=== PATIENT | female | born 1980 | race Caucasian/White ===

== ENCOUNTER 2017-06-25 07:43 | Emergency (ER) | payer MEDICARE, MEDICAID ==
[~2017-06-25] VITALS: Ht 149.9 cm; Wt 75.0 kg
[~2017-06-25 07:43] MED LIST: DULO-31 PO; EST1T PO; HYDR-3965 PO; IBUP-1051 PO; LIDO20SO PO; NAPR-232 PO; NAPR-56 PO; TRAM50TA2 PO; TRAZ-91 PO
[2017-06-25] MEDS ORDERED: ipratropium/albuterol 3ml nebule NEB ONE (08:15)
[2017-06-25] MEDS ORDERED: ketorolac trometh inj. 60 MG/2 ML VIAL IM ONE (08:15)
[2017-06-25] MEDS ORDERED: albuterol 2.5 MG/3 ML nebule NEB ONE (09:15)
[2017-06-25] MEDS ORDERED: BENZ-38 PO (09:17)
[2017-06-25] MEDS ORDERED: GUAI1TBM19 PO (09:17)
[2017-06-25] MEDS ORDERED: PRED50TA PO (09:17)
[2017-06-25] MEDS ORDERED: ALBU8.5H8 IH (09:17)
[2017-06-25 10:43] VITALS: BP 148/88
== END 2017-06-25 10:48 | disposition home or self-care (01) ==
LOC: ER 07:43
DX: J06.9 Acute upper respiratory infection, unspecified (principal); R05 Cough; J45.909 Unspecified asthma, uncomplicated; M81.0 Age-related osteoporosis without current pathological fracture; Z88.0 Allergy status to penicillin; Z88.2 Allergy status to sulfonamides; Z79.899 Other long term (current) drug therapy
CPT/HCPCS: 71046; 94640; 94760; 96372; 99284; J1885

== ENCOUNTER 2017-06-27 16:18 | Emergency (ER) | payer MEDICARE, MEDICAID ==
[~2017-06-27] VITALS: Ht 149.9 cm; Wt 68.2 kg
[~2017-06-27 16:18] MED LIST changes: +ALBU8.5H8 IH; +BENZ-38 PO; +GUAI1TBM19 PO; +PRED50TA PO
[2017-06-27 16:43] LABS: BASOPHILS # (AUTO) 0.1 X10'3 (0-0.2); BASOPHILS % (AUTO) 0.5 % (0-1); EOSINOPHILS # (AUTO) 0.2 X10'3 (0-0.9); EOSINOPHILS % (AUTO) 1.3 % (0-6); HEMATOCRIT 39.6 % (35.0-45.0); HEMOGLOBIN 13.4 g/dl (12.0-16.0); LYMPHOCYTES # (AUTO) 5.1 X10'3 (1.1-4.8); LYMPHOCYTES % (AUTO) 36.6 % (21-51); MEAN CORPUSCULAR HEMOGLOBIN 27.4 PG (27.0-31.0); MEAN CORPUSCULAR HGB CONC 33.7 % (33.0-36.5); MEAN CORPUSCULAR VOLUME 81.1 FL (78-98); MEAN PLATELET VOLUME 10.1 FL (7.4-10.4); MONOCYTES # (AUTO) 0.7 X10'3 (0-0.9); NEUTROPHILS # (AUTO) 7.8 X10'3 (1.8-7.7); NEUTROPHILS % (AUTO) 56.6 % (42-75); PLATELET COUNT 215 X10'3 (140-440); RED BLOOD COUNT 4.89 X10'6 (4.20-5.60); RED CELL DISTRIBUTION WIDTH 14.7 % (11.5-14.5); WHITE BLOOD COUNT 13.8 X10'3 (4.5-11.0)
[2017-06-27 16:55] LABS: INR 0.9 INR; PARTIAL THROMBOPLASTIN TIME 25 SECONDS (22-32); PROTHROMBIN TIME 9.8 SECONDS (9.0-12.0)
[2017-06-27 17:00] LABS: ALANINE AMINOTRANSFERASE 32 U/L (12-78); ALBUMIN 3.3 G/DL (3.4-5.0); ALBUMIN/GLOBULIN RATIO 0.9 (1.1-1.5); ALKALINE PHOSPHATASE 139 IU/L (46-116); ANION GAP 12 (8-16); ASPARTATE AMINO TRANSFERASE 15 U/L (10-37); BILIRUBIN,TOTAL 0.2 MG/DL (0.1-1.0); BLOOD UREA NITROGEN 15 MG/DL (7-18); BUN/CREATININE RATIO 16.3 (6.6-38.0); CALCIUM 8.6 MG/DL (8.5-10.1); CHLORIDE 104 MMOL/L (99-107); CREATININE 0.92 MG/DL (0.40-0.90); GLUCOSE 109 MG/DL (70-104); POTASSIUM 3.4 MMOL/L (3.5-5.1); SODIUM 141 MMOL/L (135-145); TOTAL CARBON DIOXIDE 25.4 MMOL/L (24-32); TOTAL PROTEIN 6.9 G/DL (6.4-8.2); eGFR 69 ML/MIN
[2017-06-27] MEDS ORDERED: normal saline 1000ML IV soln IVB ONE ×2 (19:00)
[2017-06-27] MEDS ORDERED: LORazepam 2 mg/ml vial IV ONE (19:35)
[2017-06-27 20:50] LABS: D-DIMER 0.35 MG/L FEU (0-0.50)
[2017-06-27 21:28] VITALS: BP 148/98
== END 2017-06-27 21:25 | disposition home or self-care (01) ==
LOC: ER 16:19
DX: R00.0 Tachycardia, unspecified (principal); J45.909 Unspecified asthma, uncomplicated; M81.0 Age-related osteoporosis without current pathological fracture; Z90.710 Acquired absence of both cervix and uterus; Z88.2 Allergy status to sulfonamides; Z88.0 Allergy status to penicillin
CPT/HCPCS: 36415; 71045; 80053; 84443; 84484; 85025; 85379; 85610; 85730; 93005; 96361; 96374; 99285; J2060; J7030

== ENCOUNTER 2017-07-14 09:07 | Emergency (ER) | payer MEDICARE, MEDICAID ==
[~2017-07-14] VITALS: Ht 149.9 cm; Wt 72.2 kg
[2017-07-14 09:18] VITALS: BP 153/81
[2017-07-14] MEDS ORDERED: ipratropium/albuterol 3ml nebule NEB ONE (09:45)
[2017-07-14] MEDS ORDERED: METH4TAB81 PO (09:53)
[2017-07-14] MEDS ORDERED: ERYT1OIN6 RIGHTEYE (09:53)
[2017-07-14] MEDS ORDERED: LIDO20SO16 PO (09:53)
[2017-07-14] MEDS ORDERED: CLAR500T PO (09:53)
[2017-07-14] MEDS ORDERED: ipratropium/albuterol 3ml nebule ONE (09:57)
== END 2017-07-14 10:44 | disposition home or self-care (01) ==
LOC: ER 09:07
DX: J98.01 Acute bronchospasm (principal); H10.9 Unspecified conjunctivitis; H66.91 Otitis media, unspecified, right ear; J45.909 Unspecified asthma, uncomplicated; M81.0 Age-related osteoporosis without current pathological fracture; Z90.710 Acquired absence of both cervix and uterus; Z88.0 Allergy status to penicillin; Z88.2 Allergy status to sulfonamides; Z79.899 Other long term (current) drug therapy
CPT/HCPCS: 94640; 94760; 99283

== ENCOUNTER 2017-11-01 09:56 | Emergency (ER) | payer MEDICARE, MEDICAID ==
[~2017-11-01] VITALS: Ht 147.3 cm; Wt 68.0 kg
[~2017-11-01 09:56] MED LIST changes: -BENZ-38 PO; -HYDR-3965 PO; +LIDO20SO16 PO; +METH4TAB81 PO
[2017-11-01] MEDS ORDERED: LIDOcaine 1% 30ml preserv. free vial IJ ONE (10:50)
[2017-11-01] MEDS ORDERED: TETanus/Pertussis (Acell)/Diphther VAC/PF (Tdap-Adult) 0.5ml syringe IM ONE (10:50)
[2017-11-01] MEDS ORDERED: DOXY100C2 PO (10:58)
[2017-11-01 11:20] VITALS: BP 113/69
== END 2017-11-01 11:24 | disposition home or self-care (01) ==
LOC: ER 09:56
DX: S61.210A Laceration without foreign body of right index finger without damage to nail, initial encounter (principal); J45.909 Unspecified asthma, uncomplicated; M81.0 Age-related osteoporosis without current pathological fracture; Z90.710 Acquired absence of both cervix and uterus; Z98.890 Other specified postprocedural states; Z88.0 Allergy status to penicillin; Z88.2 Allergy status to sulfonamides; Z79.899 Other long term (current) drug therapy; W26.8XXA Contact with other sharp object(s), not elsewhere classified, initial encounter; Y93.89 Activity, other specified; Y92.89 Other specified places as the place of occurrence of the external cause; Y99.8 Other external cause status
CPT/HCPCS: 90471; 90715; 99283

== ENCOUNTER 2018-09-09 15:52 | Emergency (ER) | payer MEDICARE, MEDICAID ==
[~2018-09-09] VITALS: Ht 149.9 cm; Wt 68.2 kg
[2018-09-09 15:53] VITALS: BP 136/87
[2018-09-09] MEDS ORDERED: NAPR-56 PO (16:11)
== END 2018-09-09 16:27 | disposition home or self-care (01) ==
LOC: ER 15:53
DX: G56.01 Carpal tunnel syndrome, right upper limb (principal); G89.29 Other chronic pain; J45.909 Unspecified asthma, uncomplicated; M81.0 Age-related osteoporosis without current pathological fracture; Z90.710 Acquired absence of both cervix and uterus; Z98.890 Other specified postprocedural states; Z88.0 Allergy status to penicillin; Z88.2 Allergy status to sulfonamides; Z79.899 Other long term (current) drug therapy
CPT/HCPCS: 29125; 99283

== ENCOUNTER 2018-11-08 17:30 | Emergency (ER) | payer MEDICARE, MEDICAID ==
[~2018-11-08] VITALS: Ht 149.9 cm; Wt 71.0 kg
[2018-11-08 18:03] VITALS: BP 122/77
== END 2018-11-08 20:11 | disposition home or self-care (01) ==
LOC: ER 17:30
DX: M25.562 Pain in left knee (principal); J45.909 Unspecified asthma, uncomplicated; M81.0 Age-related osteoporosis without current pathological fracture; F41.9 Anxiety disorder, unspecified; F32.9 Major depressive disorder, single episode, unspecified; Z88.0 Allergy status to penicillin; Z88.2 Allergy status to sulfonamides; Z79.899 Other long term (current) drug therapy; Z90.710 Acquired absence of both cervix and uterus; Z98.890 Other specified postprocedural states
CPT/HCPCS: 73564; 99283

== ENCOUNTER 2018-12-21 16:59 | Emergency (ER) | payer MEDICARE, MEDICAID ==
[~2018-12-21] VITALS: Ht 149.9 cm; Wt 68.0 kg
[2018-12-21 17:04] VITALS: BP 137/80
[2018-12-21] MEDS ORDERED: CLIN300C54 PO (17:43)
[2018-12-21] MEDS ORDERED: TRAM50TA2 PO (17:43)
[2018-12-21] MEDS ORDERED: CHLO473M3 PO (17:43)
== END 2018-12-21 17:47 | disposition home or self-care (01) ==
LOC: ER 17:00
DX: K04.7 Periapical abscess without sinus (principal); M81.0 Age-related osteoporosis without current pathological fracture; J45.909 Unspecified asthma, uncomplicated; F32.9 Major depressive disorder, single episode, unspecified; F41.9 Anxiety disorder, unspecified; Z88.0 Allergy status to penicillin; Z88.2 Allergy status to sulfonamides; Z79.899 Other long term (current) drug therapy; Z79.1 Long term (current) use of non-steroidal anti-inflammatories (NSAID); Z98.890 Other specified postprocedural states; Z90.710 Acquired absence of both cervix and uterus; Z90.721 Acquired absence of ovaries, unilateral
CPT/HCPCS: 99283

== ENCOUNTER 2018-12-31 09:49 | Emergency (ER) | payer MEDICARE, MEDICAID ==
[~2018-12-31] VITALS: Ht 149.9 cm; Wt 75.0 kg
[~2018-12-31 09:49] MED LIST changes: +CHLO473M3 PO; +CLIN300C54 PO
[2018-12-31] MEDS ORDERED: methylPREDNISolone sod succ 125mg/2ml vial IV ONE (09:55)
[2018-12-31] MEDS ORDERED: magnesium 2GM in 50ml NS 50 ML IV ONE (09:55)
[2018-12-31] MEDS ORDERED: albuterol 2.5 MG/3 ML nebule CONTNEB PRN (09:55)
[2018-12-31] MEDS ORDERED: normal saline 1000ML IV soln IVB ONE (09:55)
[2018-12-31 10:23] LABS: BASOPHILS # (AUTO) 0.1 X10'3 (0-0.2); BASOPHILS % (AUTO) 0.9 % (0-1); EOSINOPHILS % (AUTO) 10.7 % (0-6); HEMOGLOBIN 13.8 g/dl (12.0-16.0); LYMPHOCYTES # (AUTO) 3.2 X10'3 (1.1-4.8); LYMPHOCYTES % (AUTO) 33.2 % (21-51); MEAN CORPUSCULAR HEMOGLOBIN 27.9 PG (27.0-31.0); MEAN CORPUSCULAR HGB CONC 33.6 g/dL (33.0-36.5); MEAN PLATELET VOLUME 9.6 FL (7.4-10.4); MONOCYTES # (AUTO) 0.6 X10'3 (0-0.9); NEUTROPHILS # (AUTO) 4.7 X10'3 (1.8-7.7); NEUTROPHILS % (AUTO) 49.2 % (42-75); PLATELET COUNT 202 X10'3 (140-440); RED BLOOD COUNT 4.94 X10'6 (4.20-5.60); RED CELL DISTRIBUTION WIDTH 14.1 % (11.5-14.5); WHITE BLOOD COUNT 9.5 X10'3 (4.5-11.0)
[2018-12-31 10:36] LABS: ALANINE AMINOTRANSFERASE 28 U/L (12-78); ALBUMIN 3.1 G/DL (3.4-5.0); ALBUMIN/GLOBULIN RATIO 0.8 (1.1-1.5); ALKALINE PHOSPHATASE 134 IU/L (46-116); ANION GAP 8 (8-16); ASPARTATE AMINO TRANSFERASE 13 U/L (10-37); BILIRUBIN,TOTAL 0.1 MG/DL (0.1-1.0); BLOOD UREA NITROGEN 14 MG/DL (7-18); BUN/CREATININE RATIO 18.4 (6.6-38.0); CALCIUM 8.6 MG/DL (8.5-10.1); CHLORIDE 107 MMOL/L (99-107); CREATININE 0.76 MG/DL (0.40-0.90); GLUCOSE 113 MG/DL (70-104); POTASSIUM 3.6 MMOL/L (3.5-5.1); SODIUM 141 MMOL/L (135-145); TOTAL CARBON DIOXIDE 25.6 MMOL/L (24-32); TOTAL PROTEIN 6.8 G/DL (6.4-8.2); eGFR 86 ML/MIN
[2018-12-31] MEDS ORDERED: PRED20TA PO (10:45)
[2018-12-31] MEDS ORDERED: AZIT250T2 PO (10:45)
[2018-12-31] MEDS ORDERED: ALBU6.7H9 INH (11:43)
[2018-12-31 11:54] VITALS: BP 119/68
== END 2018-12-31 11:55 | disposition home or self-care (01) ==
LOC: ER 09:50
DX: J45.901 Unspecified asthma with (acute) exacerbation (principal); J20.9 Acute bronchitis, unspecified; M81.0 Age-related osteoporosis without current pathological fracture; F41.9 Anxiety disorder, unspecified; F32.9 Major depressive disorder, single episode, unspecified; Z90.710 Acquired absence of both cervix and uterus; Z98.890 Other specified postprocedural states; Z88.0 Allergy status to penicillin; Z88.2 Allergy status to sulfonamides; Z79.2 Long term (current) use of antibiotics; Z79.899 Other long term (current) drug therapy
CPT/HCPCS: 36415; 71045; 80053; 85025; 94644; 96365; 96375; 99285; J2930; J3475; J7030; 99284

== ENCOUNTER 2019-01-28 12:40 | Emergency (ER) | payer MEDICARE, MEDICAID ==
[~2019-01-28] VITALS: Ht 149.9 cm; Wt 65.9 kg
[~2019-01-28 12:40] MED LIST changes: +ALBU6.7H9 INH
[2019-01-28 14:41] LABS: BASOPHILS # (AUTO) 0.1 X10'3 (0-0.2); BASOPHILS % (AUTO) 0.7 % (0-1); EOSINOPHILS # (AUTO) 1.1 X10'3 (0-0.9); EOSINOPHILS % (AUTO) 11.4 % (0-6); HEMATOCRIT 40.7 % (35.0-45.0); HEMOGLOBIN 13.7 g/dl (12.0-16.0); LYMPHOCYTES # (AUTO) 3.2 X10'3 (1.1-4.8); LYMPHOCYTES % (AUTO) 31.9 % (21-51); MEAN CORPUSCULAR HEMOGLOBIN 27.9 PG (27.0-31.0); MEAN CORPUSCULAR HGB CONC 33.6 g/dL (33.0-36.5); MEAN CORPUSCULAR VOLUME 83.2 FL (78-98); MEAN PLATELET VOLUME 9.5 FL (7.4-10.4); MONOCYTES # (AUTO) 0.5 X10'3 (0-0.9); MONOCYTES % (AUTO) 5.3 % (2-12); NEUTROPHILS # (AUTO) 5.1 X10'3 (1.8-7.7); NEUTROPHILS % (AUTO) 50.7 % (42-75); PLATELET COUNT 252 X10'3 (140-440); RED BLOOD COUNT 4.89 X10'6 (4.20-5.60); RED CELL DISTRIBUTION WIDTH 14.1 % (11.5-14.5)
[2019-01-28 14:51] LABS: ALANINE AMINOTRANSFERASE 26 U/L (12-78); ALBUMIN 3.1 G/DL (3.4-5.0); ALBUMIN/GLOBULIN RATIO 0.8 (1.1-1.5); ALKALINE PHOSPHATASE 122 IU/L (46-116); ANION GAP 9 (8-16); ASPARTATE AMINO TRANSFERASE 14 U/L (10-37); BILIRUBIN,TOTAL 0.2 MG/DL (0.1-1.0); BLOOD UREA NITROGEN 8 MG/DL (7-18); BUN/CREATININE RATIO 10.8 (6.6-38.0); CALCIUM 8.9 MG/DL (8.5-10.1); CHLORIDE 105 MMOL/L (99-107); CREATININE 0.74 MG/DL (0.40-0.90); GLUCOSE 90 MG/DL (70-104); POTASSIUM 3.6 MMOL/L (3.5-5.1); SODIUM 140 MMOL/L (135-145); TOTAL PROTEIN 6.9 G/DL (6.4-8.2); eGFR 88 ML/MIN
[2019-01-28] MEDS ORDERED: predniSONE 20 mg tablet PO ONE (15:05)
[2019-01-28] MEDS ORDERED: ipratropium/albuterol 3ml nebule NEB ONE (15:05)
[2019-01-28] MEDS ORDERED: PRED10TA23 PO (15:44)
[2019-01-28 15:56] VITALS: BP 117/75
== END 2019-01-28 16:01 | disposition home or self-care (01) ==
LOC: ER 12:41
DX: J45.909 Unspecified asthma, uncomplicated (principal); J02.9 Acute pharyngitis, unspecified; M81.0 Age-related osteoporosis without current pathological fracture; F41.9 Anxiety disorder, unspecified; F32.9 Major depressive disorder, single episode, unspecified; Z88.0 Allergy status to penicillin; Z88.2 Allergy status to sulfonamides; Z79.899 Other long term (current) drug therapy; Z98.890 Other specified postprocedural states; Z90.710 Acquired absence of both cervix and uterus
CPT/HCPCS: 36415; 71046; 80053; 85025; 94640; 94760; 99284; J7512

== ENCOUNTER 2019-02-27 06:43 | Emergency (ER) | payer MEDICARE, MEDICAID ==
[~2019-02-27] VITALS: Ht 149.9 cm; Wt 75.0 kg
[~2019-02-27 06:43] MED LIST changes: +PRED10TA23 PO
[2019-02-27] MEDS ORDERED: ipratropium/albuterol 3ml nebule NEB ONE (07:00)
[2019-02-27] MEDS ORDERED: predniSONE 20 mg tablet PO ONE (07:00)
--- NOTE | 2019-02-27 07:01 | NUR ---
patient received in room 8.patietn connected to the monitor.call light within reach.
--- NOTE | 2019-02-27 07:12 | NUR ---
awaiting rt for breathing treatment.
[2019-02-27] MEDS ORDERED: PRED20TA PO (07:36)
[2019-02-27 07:46] VITALS: BP 126/82
--- NOTE | 2019-02-27 10:06 | NUR ---
I have reviewed and agree with all medications administered and interventions performed by CANCELING AND CUTTING CONTROL CLERK Student Dimas Clemente.
== END 2019-02-27 07:47 | disposition home or self-care (01) ==
LOC: ER 06:43
DX: J45.909 Unspecified asthma, uncomplicated (principal); M81.0 Age-related osteoporosis without current pathological fracture; Z98.890 Other specified postprocedural states; Z90.710 Acquired absence of both cervix and uterus; Z79.899 Other long term (current) drug therapy; Z88.0 Allergy status to penicillin; Z88.2 Allergy status to sulfonamides
CPT/HCPCS: 71045; 94640; 94760; 99283; J7512

== ENCOUNTER 2019-03-19 14:22 | Emergency (ER) | payer MEDICARE, MEDICAID ==
[~2019-03-19] VITALS: Ht 149.9 cm; Wt 72.0 kg
[~2019-03-19 14:22] MED LIST changes: -PRED10TA23 PO; +PRED20TA PO
[2019-03-19] MEDS ORDERED: ipratropium/albuterol 3ml nebule NEB ONE (15:25)
--- NOTE | 2019-03-19 15:46 | NUR ---
SVN TREATMENT IN PROGRESS
[2019-03-19] MEDS ORDERED: predniSONE 20 mg tablet PO ONE (15:50)
[2019-03-19] MEDS ORDERED: AZIT250T83 PO (15:54)
[2019-03-19] MEDS ORDERED: PRED20TA PO (15:54)
[2019-03-19 16:25] VITALS: BP 135/64
== END 2019-03-19 16:20 | disposition home or self-care (01) ==
LOC: ER 14:23
DX: J45.909 Unspecified asthma, uncomplicated (principal); J20.9 Acute bronchitis, unspecified; F41.9 Anxiety disorder, unspecified; F32.9 Major depressive disorder, single episode, unspecified; Z90.710 Acquired absence of both cervix and uterus; Z98.890 Other specified postprocedural states; Z90.721 Acquired absence of ovaries, unilateral; Z88.0 Allergy status to penicillin; Z88.2 Allergy status to sulfonamides; Z79.899 Other long term (current) drug therapy
CPT/HCPCS: 93005; 94640; 99283; J7512; 94760

== ENCOUNTER 2019-03-26 18:19 | Emergency (ER) | payer MEDICARE, MEDICAID ==
[~2019-03-26] VITALS: Ht 149.9 cm; Wt 68.0 kg
[2019-03-26 18:30] VITALS: BP 125/83
[2019-03-26] MEDS ORDERED: AZIT250T PO (20:33)
[2019-03-26] MEDS ORDERED: acetaminophen 325mg tablet PO ONE (20:35)
[2019-03-26] MEDS ORDERED: azithromycin 250mg tablet PO ONE (20:35)
== END 2019-03-26 20:52 | disposition home or self-care (01) ==
LOC: ER 18:21
DX: J20.9 Acute bronchitis, unspecified (principal); J45.909 Unspecified asthma, uncomplicated; F41.9 Anxiety disorder, unspecified; F32.9 Major depressive disorder, single episode, unspecified; Z90.710 Acquired absence of both cervix and uterus; Z98.890 Other specified postprocedural states; Z90.721 Acquired absence of ovaries, unilateral; Z88.0 Allergy status to penicillin; Z88.2 Allergy status to sulfonamides; Z79.899 Other long term (current) drug therapy
CPT/HCPCS: 99283

== ENCOUNTER 2019-04-26 19:02 | Emergency (ER) | payer MEDICARE, MEDICAID ==
[~2019-04-26] VITALS: Ht 149.9 cm; Wt 72.7 kg
[~2019-04-26 19:02] MED LIST changes: +AZIT250T PO; -PRED20TA PO
[2019-04-26] MEDS ORDERED: TRAM50TA2 PO (21:14)
[2019-04-26] MEDS ORDERED: IBUP-1984 PO (21:14)
[2019-04-26 21:23] VITALS: BP 134/79
== END 2019-04-26 21:25 | disposition home or self-care (01) ==
LOC: ER 19:03
DX: S20.212A Contusion of left front wall of thorax, initial encounter (principal); J45.909 Unspecified asthma, uncomplicated; F41.9 Anxiety disorder, unspecified; F32.9 Major depressive disorder, single episode, unspecified; Z90.710 Acquired absence of both cervix and uterus; Z98.890 Other specified postprocedural states; Z88.2 Allergy status to sulfonamides; Z88.0 Allergy status to penicillin; Z79.2 Long term (current) use of antibiotics; Z79.899 Other long term (current) drug therapy; W18.39XA Other fall on same level, initial encounter; Y93.89 Activity, other specified; Y92.092 Bedroom in other non-institutional residence as the place of occurrence of the external cause; Y99.2 Volunteer activity
CPT/HCPCS: 71045; 99283

== ENCOUNTER 2019-06-18 09:59 | Inpatient (IN) | payer MEDICARE, MEDICAID ==
[~2019-06-18] VITALS: Ht 149.9 cm; Wt 71.0 kg
[2019-06-18 11:42] LABS: BASOPHILS # (AUTO) 0.1 X10'3 (0-0.2); BASOPHILS % (AUTO) 0.9 % (0-1); EOSINOPHILS # (AUTO) 0.5 X10'3 (0-0.9); EOSINOPHILS % (AUTO) 5.9 % (0-6); HEMATOCRIT 43.2 % (35.0-45.0); HEMOGLOBIN 14.3 g/dl (12.0-16.0); LYMPHOCYTES # (AUTO) 2.5 X10'3 (1.1-4.8); LYMPHOCYTES % (AUTO) 31.2 % (21-51); MEAN CORPUSCULAR HEMOGLOBIN 26.9 PG (27.0-31.0); MEAN CORPUSCULAR HGB CONC 33.2 g/dL (33.0-36.5); MEAN CORPUSCULAR VOLUME 81.2 FL (78-98); MEAN PLATELET VOLUME 9.6 FL (7.4-10.4); MONOCYTES # (AUTO) 0.5 X10'3 (0-0.9); MONOCYTES % (AUTO) 6.7 % (2-12); NEUTROPHILS # (AUTO) 4.4 X10'3 (1.8-7.7); NEUTROPHILS % (AUTO) 55.3 % (42-75); PLATELET COUNT 240 X10'3 (140-440); RED BLOOD COUNT 5.32 X10'6 (4.20-5.60); RED CELL DISTRIBUTION WIDTH 14.2 % (11.5-14.5); WHITE BLOOD COUNT 7.9 X10'3 (4.5-11.0)
[2019-06-18 11:53] LABS: ALANINE AMINOTRANSFERASE 22 U/L (12-78); ALBUMIN 3.5 G/DL (3.4-5.0); ALBUMIN/GLOBULIN RATIO 0.9 (1.1-1.5); ALKALINE PHOSPHATASE 129 IU/L (46-116); ANION GAP 8 (8-16); ASPARTATE AMINO TRANSFERASE 13 U/L (10-37); BILIRUBIN,TOTAL 0.3 MG/DL (0.1-1.0); BLOOD UREA NITROGEN 7 MG/DL (7-18); BUN/CREATININE RATIO 8.5 (6.6-38.0); CALCIUM 8.9 MG/DL (8.5-10.1); CHLORIDE 105 MMOL/L (99-107); CREATININE 0.82 MG/DL (0.40-0.90); GLUCOSE 100 MG/DL (70-104); POTASSIUM 3.7 MMOL/L (3.5-5.1); SODIUM 142 MMOL/L (135-145); TOTAL CARBON DIOXIDE 29.4 MMOL/L (24-32); TOTAL PROTEIN 7.2 G/DL (6.4-8.2); eGFR 78 ML/MIN
[2019-06-18 11:54] LABS: TROPONIN I < 0.04 NG/ML (0.0-0.05)
[2019-06-18] MEDS: diatr meglu/diatrizoate 30ml oral sol.-(3 dose) bottle PO SCH (12:45)
[2019-06-18] MEDS ORDERED: diatr meglu/diatrizoate 30ml oral sol.-(3 dose) bottle ONE (12:50)
--- NOTE | 2019-06-18 13:32 | NUR ---
GASTROGRAFIN GIVEN OUT AT CT DURING CT SCAN.
[2019-06-18] MEDS ORDERED: morphine 4 MG/ML inj SYRINge IV ONE (15:05)
[2019-06-18] MEDS ORDERED: normal saline 1000ML IV soln IVB ONE (15:05)
[2019-06-18] MEDS ORDERED: pantoprazole 40 MG vial IV ONE (15:05)
[2019-06-18] MEDS ORDERED: TEMA15CA PO (15:13)
[2019-06-18] MEDS ORDERED: OMEP20CA15 PO (15:13)
[2019-06-18] MEDS ORDERED: FLUO-212 PO (15:13)
[2019-06-18] MEDS ORDERED: LORA-269 PO (15:13)
[2019-06-18] MEDS ORDERED: albuterol 2.5 MG/3 ML nebule NEB PRN (15:50)
[2019-06-18] MEDS ORDERED: morphine ORAL 5MG/0.25 ML (Conc. morphine) oral syringe PO PRN (15:55)
[2019-06-18] MEDS ORDERED: acetaminophen 650mg rectal suppository RC PRN (15:55)
[2019-06-18] MEDS ORDERED: mag hydrox/Alum hydrox/simeth 30ml oral suspension PO PRN (15:55)
[2019-06-18] MEDS ORDERED: acetaminophen 325mg tablet PO PRN (15:55)
[2019-06-18] MEDS ORDERED: ondansetron/PF 4mg/2ml inj IV PRN (15:55)
[2019-06-18] MEDS ORDERED: morphine 2 MG/ML inj. syringe IV PRN (15:55)
[2019-06-18] MEDS ORDERED: magnesium hydroxide 30ml (MOM) UD suspension PO PRN (15:55)
[2019-06-18] MEDS ORDERED: TRAM50TA2 PO (16:17)
[2019-06-18] MEDS ORDERED: CYCL-1 PO (16:17)
[2019-06-18] MEDS ORDERED: cyclobenzaprine 10mg tablet PO PRN (16:40)
[2019-06-18] MEDS: dextrose 5%-1/2 normal saline 1,000 ML IV SCH ×2 (16:53→16:56)
[2019-06-18] MEDS: sucralfate 1gm/10ml UD suspension PO SCH ×2 (16:55→20:16)
--- NOTE | 2019-06-18 18:41 | NUR ---
I was giving report to the floor and was informed by her that they changed assignments and the patient no longer has the room.
--- NOTE | 2019-06-18 19:30 | NUR ---
Patient in room [facility]TH[facility] 4015. I have received report from ORQUIDEA Villarreal and had the opportunity to ask questions and assume patient care.
[2019-06-18 20:00] VITALS: BP_SYST 110; BP_SYST 129; BP_SYST 99; BP_DIAS 63; BP_DIAS 68; BP_DIAS 88
[2019-06-18] MEDS: morphine 2 MG/ML inj. syringe IV PRN (20:13)
[2019-06-18] MEDS ORDERED: ibuprofen tablet 400 MG TABLET PO PRN (21:00)
[2019-06-18 22:00] VITALS: BP 110/68
[2019-06-18] MEDS: temazepam 15mg capsule PO PRN (22:04)
[2019-06-19] MEDS: morphine 2 MG/ML inj. syringe IV PRN ×3 (01:50→19:30)
[2019-06-19] MEDS: albuterol 2.5 MG/3 ML nebule NEB SCH ×4 (01:53→20:27)
--- NOTE | 2019-06-19 06:30 | NUR ---
Problems reprioritized. Patient report given, questions answered & plan of care reviewed with ORQUIDEA Baron.
--- NOTE | 2019-06-19 06:30 | NUR ---
Patient in room ORTH[facility] 4015. I have received report from Cookie HEARD and had the opportunity to ask questions and assume patient care.
[2019-06-19] MEDS: dextrose 5%-1/2 normal saline 1,000 ML IV SCH ×2 (06:41→16:30)
[2019-06-19] MEDS: sucralfate 1gm/10ml UD suspension PO SCH ×5 (06:53→21:19)
[2019-06-19 06:56] VITALS: BP 108/58
[2019-06-19 07:25] LABS: BASOPHILS # (AUTO) 0.1 X10'3 (0-0.2); BASOPHILS % (AUTO) 0.8 % (0-1); EOSINOPHILS # (AUTO) 0.5 X10'3 (0-0.9); EOSINOPHILS % (AUTO) 6.3 % (0-6); HEMATOCRIT 41.8 % (35.0-45.0); HEMOGLOBIN 13.8 g/dl (12.0-16.0); LYMPHOCYTES % (AUTO) 40.9 % (21-51); MEAN CORPUSCULAR HEMOGLOBIN 26.9 PG (27.0-31.0); MEAN CORPUSCULAR VOLUME 81.4 FL (78-98); MONOCYTES # (AUTO) 0.4 X10'3 (0-0.9); NEUTROPHILS # (AUTO) 3.4 X10'3 (1.8-7.7); PLATELET COUNT 233 X10'3 (140-440); RED BLOOD COUNT 5.13 X10'6 (4.20-5.60); RED CELL DISTRIBUTION WIDTH 14.5 % (11.5-14.5); WHITE BLOOD COUNT 7.4 X10'3 (4.5-11.0)
[2019-06-19 07:34] LABS: ALBUMIN 3.2 G/DL (3.4-5.0); ANION GAP 7 (8-16); BLOOD UREA NITROGEN 5 MG/DL (7-18); CALCIUM 8.8 MG/DL (8.5-10.1); CHLORIDE 108 MMOL/L (99-107); CREATININE 0.84 MG/DL (0.40-0.90); GLUCOSE 86 MG/DL (70-104); POTASSIUM 3.7 MMOL/L (3.5-5.1); SODIUM 143 MMOL/L (135-145); TOTAL CARBON DIOXIDE 27.9 MMOL/L (24-32); eGFR 76 ML/MIN
[2019-06-19] MEDS: pantoprazole 40mg Tablet.DR PO SCH (07:40)
[2019-06-19] MEDS: LORazepam 1 MG tablet PO PRN ×2 (07:40→16:40)
[2019-06-19] MEDS: FLUoxetine 20mg capsule PO SCH (07:40)
[2019-06-19] MEDS: estradiol 1mg tablet PO SCH (07:41)
[2019-06-19 10:00] VITALS: BP 117/67
[2019-06-19] MEDS: morphine 10 MG/5 ML UD oral solution PO PRN ×2 (10:37→14:23)
[2019-06-19] MEDS: diatr meglu/diatrizoate 30ml oral sol.-(3 dose) bottle PO SCH (12:45)
[2019-06-19 17:32] VITALS: BP_SYST 109; BP_SYST 113; BP_SYST 122; BP_DIAS 60; BP_DIAS 67
[2019-06-19 18:00] VITALS: BP 113/60
--- NOTE | 2019-06-19 18:00 | NUR ---
Patient in room ORTH[facility] 4015. I have received report from ORQUIDEA Baron and had the opportunity to ask questions and assume patient care.
--- NOTE | 2019-06-19 18:15 | NUR ---
Problems reprioritized. Patient report given, questions answered & plan of care reviewed with Cookie HEARD.
[2019-06-19 20:00] VITALS: BP_SYST 105; BP_SYST 118; BP_SYST 120; BP_DIAS 65; BP_DIAS 66; BP_DIAS 77
[2019-06-19] MEDS: temazepam 15mg capsule PO PRN (21:25)
[2019-06-19 22:00] VITALS: BP 118/77
[2019-06-20] MEDS: morphine 2 MG/ML inj. syringe IV PRN ×2 (00:04→10:34)
[2019-06-20] MEDS: dextrose 5%-1/2 normal saline 1,000 ML IV SCH ×2 (02:02→13:04)
[2019-06-20] MEDS: albuterol 2.5 MG/3 ML nebule NEB SCH ×2 (02:27→08:38)
[2019-06-20 06:00] VITALS: BP 118/79
--- NOTE | 2019-06-20 06:10 | NUR ---
Patient in room ORTH[facility] 4015. I have received report from Cookie HEARD and had the opportunity to ask questions and assume patient care.
[2019-06-20 06:31] LABS: BASOPHILS % (AUTO) 0.6 % (0-1); EOSINOPHILS # (AUTO) 0.5 X10'3 (0-0.9); EOSINOPHILS % (AUTO) 8.1 % (0-6); HEMATOCRIT 41.8 % (35.0-45.0); HEMOGLOBIN 14.1 g/dl (12.0-16.0); LYMPHOCYTES # (AUTO) 2.3 X10'3 (1.1-4.8); LYMPHOCYTES % (AUTO) 35.9 % (21-51); MEAN CORPUSCULAR HEMOGLOBIN 27.5 PG (27.0-31.0); MEAN CORPUSCULAR HGB CONC 33.7 g/dL (33.0-36.5); MEAN CORPUSCULAR VOLUME 81.8 FL (78-98); MEAN PLATELET VOLUME 8.9 FL (7.4-10.4); MONOCYTES # (AUTO) 0.4 X10'3 (0-0.9); MONOCYTES % (AUTO) 6.8 % (2-12); NEUTROPHILS # (AUTO) 3.2 X10'3 (1.8-7.7); NEUTROPHILS % (AUTO) 48.6 % (42-75); PLATELET COUNT 236 X10'3 (140-440); RED BLOOD COUNT 5.11 X10'6 (4.20-5.60); RED CELL DISTRIBUTION WIDTH 14.2 % (11.5-14.5); WHITE BLOOD COUNT 6.5 X10'3 (4.5-11.0)
--- NOTE | 2019-06-20 06:34 | NUR ---
Problems reprioritized. Patient report given, questions answered & plan of care reviewed with ORQUIDEA Baron.
[2019-06-20 06:48] LABS: ALBUMIN 3.2 G/DL (3.4-5.0); ANION GAP 8 (8-16); CALCIUM 8.6 MG/DL (8.5-10.1); CHLORIDE 106 MMOL/L (99-107); CREATININE 0.86 MG/DL (0.40-0.90); GLUCOSE 110 MG/DL (70-104); POTASSIUM 3.4 MMOL/L (3.5-5.1); SODIUM 142 MMOL/L (135-145); TOTAL CARBON DIOXIDE 27.9 MMOL/L (24-32); eGFR 74 ML/MIN
[2019-06-20 06:56] LABS: BUN/CREATININE RATIO 3.5 (6.6-38.0)
[2019-06-20 06:58] LABS: BLOOD UREA NITROGEN 3 MG/DL (7-18)
[2019-06-20] MEDS: FLUoxetine 20mg capsule PO SCH (08:00)
[2019-06-20] MEDS: pantoprazole 40mg Tablet.DR PO SCH (08:00)
[2019-06-20] MEDS: sucralfate 1gm/10ml UD suspension PO SCH ×2 (08:00→13:02)
[2019-06-20] MEDS: morphine 10 MG/5 ML UD oral solution PO PRN ×2 (08:01→11:51)
[2019-06-20] MEDS: estradiol 1mg tablet PO SCH (08:01)
[2019-06-20] MEDS ORDERED: potassium Cl 20 mEq SR tablet PO PRN ×2 (09:35)
[2019-06-20] MEDS ORDERED: potassium CL 10mEq/100ml bag 100 ML IV PRN (09:35)
[2019-06-20 10:00] VITALS: BP 114/63
[2019-06-20] MEDS: LORazepam 1 MG tablet PO PRN (11:51)
[2019-06-20] MEDS ORDERED: HYDROcodone/acetaminophen 5mg/325mg tablet PO ONE (14:10)
[2019-06-20] MEDS ORDERED: SUCR1TAB PO (14:18)
[2019-06-20] MEDS ORDERED: HYDR-4383 PO ×2 (14:18→14:34)
--- NOTE | 2019-06-20 15:55 | NUR ---
Patient discharged at this time, copy of norco prescription given to patient and other meds into [facility]. Patient taught to eat soft food for now and come back to ED if she has worsening difficulty swallowing.
== END 2019-06-20 16:17 | disposition home or self-care (01) | DRG 880 ==
LOC: ER 10:00 → ED HOLD 15:51 → ORTHO 4S 20:07 → OBSVTOIN 06-19 10:00
PROVIDERS: ADMIT Internal Medicine; ATTEND Internal Medicine
DX: F41.9 Anxiety disorder, unspecified (principal); J45.909 Unspecified asthma, uncomplicated; K20.9 Esophagitis, unspecified; T18.190A Other foreign object in esophagus causing compression of trachea, initial encounter; X58.XXXA Exposure to other specified factors, initial encounter; K44.9 Diaphragmatic hernia without obstruction or gangrene; F32.9 Major depressive disorder, single episode, unspecified; M81.0 Age-related osteoporosis without current pathological fracture; Z79.899 Other long term (current) drug therapy; Z90.710 Acquired absence of both cervix and uterus; Z98.891 History of uterine scar from previous surgery; Z88.0 Allergy status to penicillin; Z88.2 Allergy status to sulfonamides; Y93.89 Activity, other specified; Y99.8 Other external cause status; Y92.89 Other specified places as the place of occurrence of the external cause
CPT/HCPCS: 36415; 71046; 71250; 80048; 80053; 84484; 85025; 87081; 93005; 94640; 94760; 96374; 96375; 99285; C9113; G0378; J2270; J7030; Q9963

== ENCOUNTER 2019-12-05 18:40 | Emergency (ER) | payer MEDICARE, MEDICAID ==
[~2019-12-05] VITALS: Ht 149.9 cm; Wt 65.9 kg
[~2019-12-05 18:40] MED LIST changes: -ALBU6.7H9 INH; -AZIT250T PO; -CHLO473M3 PO; -CLIN300C54 PO; +CYCL-1 PO; -DULO-31 PO; +FLUO-212 PO; -GUAI1TBM19 PO; +HYDR-4383 PO; -IBUP-1051 PO; -LIDO20SO PO; -LIDO20SO16 PO; +LORA-269 PO; -METH4TAB81 PO; -NAPR-232 PO; -NAPR-56 PO; +OMEP20CA15 PO; -PRED50TA PO; +SUCR1TAB PO; +TEMA15CA PO; -TRAZ-91 PO
--- NOTE | 2019-12-05 21:30 | NUR ---
VALENTIN Lopez at bedside.
[2019-12-05] MEDS ORDERED: triamcinolone acetonide 40mg/ml inj IM ONE (21:40)
[2019-12-05] MEDS ORDERED: PRED10TA PO (21:49)
[2019-12-05] MEDS ORDERED: PRED20TA PO (21:52)
[2019-12-05 22:23] VITALS: BP 140/85
== END 2019-12-05 22:25 | disposition home or self-care (01) ==
LOC: ER 18:40
DX: R21 Rash and other nonspecific skin eruption (principal); J45.909 Unspecified asthma, uncomplicated; M81.0 Age-related osteoporosis without current pathological fracture; F41.9 Anxiety disorder, unspecified; F32.9 Major depressive disorder, single episode, unspecified; Z90.710 Acquired absence of both cervix and uterus; Z98.890 Other specified postprocedural states; Z88.0 Allergy status to penicillin; Z88.2 Allergy status to sulfonamides; Z79.899 Other long term (current) drug therapy
CPT/HCPCS: 96372; 99283; J3301

== ENCOUNTER 2020-09-04 11:25 | Emergency (ER) | payer MEDICARE, MEDICAID ==
[~2020-09-04] VITALS: Ht 149.9 cm; Wt 63.2 kg
[~2020-09-04 11:25] MED LIST changes: +PRED10TA PO
[2020-09-04 11:33] VITALS: BP 138/92
[2020-09-04] MEDS ORDERED: PERM60CR19 TP (11:45)
[2020-09-04] MEDS ORDERED: PRED10TA23 PO (11:47)
== END 2020-09-04 12:10 | disposition home or self-care (01) ==
LOC: ER 11:26
DX: R21 Rash and other nonspecific skin eruption (principal); L29.9 Pruritus, unspecified; Z88.0 Allergy status to penicillin; Z88.2 Allergy status to sulfonamides; Z79.899 Other long term (current) drug therapy; J45.909 Unspecified asthma, uncomplicated; M81.0 Age-related osteoporosis without current pathological fracture; Z90.710 Acquired absence of both cervix and uterus; Z98.891 History of uterine scar from previous surgery
CPT/HCPCS: 99283

== ENCOUNTER 2021-01-08 09:42 | Emergency (ER) | payer MEDICARE, MEDICAID ==
[~2021-01-08] VITALS: Ht 149.9 cm; Wt 63.6 kg
[~2021-01-08 09:42] MED LIST changes: +ALBU8.5H17 IH; -ALBU8.5H8 IH
[2021-01-08 10:08] VITALS: BP 122/65
[2021-01-08] MEDS ORDERED: PRED20TA PO (11:05)
[2021-01-08] MEDS ORDERED: ALBU6.7H9 INH (11:05)
== END 2021-01-08 12:20 | disposition home or self-care (01) ==
LOC: ER 09:43
DX: J45.909 Unspecified asthma, uncomplicated (principal); Z20.822 Contact with and (suspected) exposure to COVID-19; J06.9 Acute upper respiratory infection, unspecified; M81.0 Age-related osteoporosis without current pathological fracture; Z98.890 Other specified postprocedural states; Z88.0 Allergy status to penicillin; Z88.2 Allergy status to sulfonamides; Z79.899 Other long term (current) drug therapy
CPT/HCPCS: 36415; 99283; U0003; U0005

== ENCOUNTER 2021-12-26 08:39 | Emergency (ER) | payer MEDICARE, MEDICAID ==
[~2021-12-26] VITALS: Ht 149.9 cm; Wt 65.9 kg
[~2021-12-26 08:39] MED LIST changes: +ALBU6.7H9 INH; +DICL20GE TOP; +NAPR-56 PO
[2021-12-26] MEDS ORDERED: methylPREDNISolone sod succ 125mg/2ml vial IV ONE (09:00)
[2021-12-26] MEDS ORDERED: normal saline 1000ML IV soln IVB STA (09:00)
[2021-12-26] MEDS ORDERED: famotidine/PF 10 mg/ml inj IV ONE (09:00)
[2021-12-26] MEDS ORDERED: epiNEPHrine 1 mg/ml inj SQ ONE (09:00)
[2021-12-26] MEDS ORDERED: diphenhydrAMINE 50 mg/ml inj IV ONE (09:00)
[2021-12-26 11:04] VITALS: BP 117/74
[2021-12-26] MEDS ORDERED: EPIN0.3P3 IM (11:09)
[2021-12-26] MEDS ORDERED: FAMO-128 PO (11:09)
[2021-12-26] MEDS ORDERED: DIPH25CA83 PO (11:09)
== END 2021-12-26 11:37 | disposition home or self-care (01) ==
LOC: ER 08:39
DX: T78.2XXA Anaphylactic shock, unspecified, initial encounter (principal); J45.909 Unspecified asthma, uncomplicated; M81.0 Age-related osteoporosis without current pathological fracture; Z98.891 History of uterine scar from previous surgery; Z90.710 Acquired absence of both cervix and uterus; Z79.899 Other long term (current) drug therapy; Z88.0 Allergy status to penicillin; Z88.2 Allergy status to sulfonamides
CPT/HCPCS: 93005; 96361; 96372; 96374; 96375; 99291; J0171; J1200; J2930; J3490; J7030; 99284

== ENCOUNTER 2022-06-29 08:07 | Emergency (ER) | payer MEDICARE, MEDICAID ==
[~2022-06-29] VITALS: Ht 149.9 cm; Wt 65.9 kg
[~2022-06-29 08:07] MED LIST changes: +ALBU6.7H14 INH; -ALBU6.7H9 INH; +DIPH25CA83 PO; +EPIN0.3P3 IM; +FAMO-128 PO; -NAPR-56 PO
[2022-06-29 09:29] VITALS: BP 125/89
[2022-06-29] MEDS ORDERED: methylPREDNISolone sod succ 125mg/2ml vial IM ONE (10:40)
[2022-06-29] MEDS ORDERED: ipratropium/albuterol 3ml nebule NEB ONE (10:40)
--- NOTE | 2022-06-29 11:17 | NUR ---
RT AT BEDSIDE
== END 2022-06-29 11:47 | disposition home or self-care (01) ==
LOC: ER 08:09
DX: J45.909 Unspecified asthma, uncomplicated (principal); R05.9 Cough, unspecified; Z88.0 Allergy status to penicillin; Z88.2 Allergy status to sulfonamides; Z98.890 Other specified postprocedural states; Z90.710 Acquired absence of both cervix and uterus
CPT/HCPCS: 94640; 96372; 99283; J2930; 94760

== ENCOUNTER 2022-10-03 17:07 | Emergency (ER) | payer MEDICARE, MEDICAID ==
[~2022-10-03] VITALS: Ht 149.9 cm; Wt 62.7 kg
[2022-10-03 17:34] VITALS: BP 167/83
[2022-10-03] MEDS ORDERED: ketorolac tromethamine 15mg/ml inj. IM ONE (18:10)
== END 2022-10-03 20:00 | disposition home or self-care (01) ==
LOC: ER 17:08
DX: M25.551 Pain in right hip (principal); J45.909 Unspecified asthma, uncomplicated; Z88.0 Allergy status to penicillin; Z88.2 Allergy status to sulfonamides; Z90.710 Acquired absence of both cervix and uterus; Z98.890 Other specified postprocedural states
CPT/HCPCS: 73502; 96372; 99283; J1885

== ENCOUNTER 2023-06-24 14:21 | Emergency (ER) | payer MEDICARE, MEDICAID ==
[~2023-06-24] VITALS: Ht 147.3 cm; Wt 65.9 kg
[2023-06-24 14:35] VITALS: TEMP 97.2
[2023-06-24 15:03] LABS: BASOPHILS # (AUTO) 0.1 X10'3 (0-0.2); BASOPHILS % (AUTO) 0.9 % (0-1); EOSINOPHILS # (AUTO) 0.3 X10'3 (0-0.9); EOSINOPHILS % (AUTO) 2.5 % (0-6); HEMATOCRIT 44.7 % (35.0-45.0); HEMOGLOBIN 14.5 g/dl (12.0-16.0); LYMPHOCYTES % (AUTO) 41.8 % (21-51); MEAN CORPUSCULAR HEMOGLOBIN 27.7 PG (27.0-31.0); MEAN CORPUSCULAR HGB CONC 32.5 g/dL (33.0-36.5); MEAN CORPUSCULAR VOLUME 85.1 FL (78-98); MEAN PLATELET VOLUME 10.1 FL (7.4-10.4); MONOCYTES # (AUTO) 0.7 X10'3 (0-0.9); MONOCYTES % (AUTO) 6.2 % (2-12); NEUTROPHILS # (AUTO) 5.8 X10'3 (1.8-7.7); NEUTROPHILS % (AUTO) 48.6 % (42-75); PLATELET COUNT 278 X10'3 (140-440); RED BLOOD COUNT 5.26 X10'6 (4.20-5.60); RED CELL DISTRIBUTION WIDTH 14.2 % (11.5-14.5); WHITE BLOOD COUNT 11.9 X10'3 (4.5-11.0)
[2023-06-24 15:14] LABS: APTT 26 SECONDS (22-32); PROTHROMBIN TIME 10.3 SECONDS (9.0-12.0)
[2023-06-24] MEDS: ketorolac trometh inj. 60 MG/2 ML VIAL IM ONE (15:14)
[2023-06-24 15:18] VITALS: BP 140/86; PULSE 78; RESP 19; O2SAT 95
[2023-06-24 15:18] LABS: ALBUMIN 3.7 G/DL (3.4-5.0); ANION GAP 12 (8-16); BLOOD UREA NITROGEN 14 MG/DL (7-18); BUN/CREATININE RATIO 18.4 (10.0-20.0); CALCIUM 8.7 MG/DL (8.5-10.1); CHLORIDE 106 MMOL/L (99-107); CREATININE 0.76 MG/DL (0.40-0.90); GLUCOSE 84 MG/DL (70-104); MAGNESIUM 2.1 MG/DL (1.5-2.4); POTASSIUM 3.5 MMOL/L (3.5-5.1); PRO BRAIN NATRIURETIC PEPTIDE 75 PG/ML (0-125); SODIUM 146 MMOL/L (135-145); TOTAL CARBON DIOXIDE 28.4 MMOL/L (24-32); eCRCL 62 ML/MIN; eGFR 83 ML/MIN
[2023-06-24] MEDS ORDERED: METH-798 PO (16:27)
[2023-06-24] MEDS ORDERED: IBUP-1985 PO (16:27)
== END 2023-06-24 16:39 | disposition home or self-care (01) ==
LOC: ER 14:22
DX: R07.89 Other chest pain (principal); Z88.0 Allergy status to penicillin; Z88.2 Allergy status to sulfonamides; Z79.899 Other long term (current) drug therapy; Z79.1 Long term (current) use of non-steroidal anti-inflammatories (NSAID); Z90.710 Acquired absence of both cervix and uterus
CPT/HCPCS: 36415; 71045; 80048; 83735; 83880; 84484; 85025; 85610; 85730; 93005; 96372; 99285; J1885

== ENCOUNTER 2024-01-28 13:34 | Emergency (ER) | payer MEDICARE, MEDICAID ==
[~2024-01-28] VITALS: Ht 147.3 cm; Wt 65.6 kg
[~2024-01-28 13:34] MED LIST changes: +IBUP-1985 PO; +METH-798 PO
[2024-01-28 13:36] VITALS: BP 128/80; PULSE 100; O2SAT 96
[2024-01-28] MEDS ORDERED: KEN0.1O TOP (14:32)
[2024-01-28] MEDS ORDERED: LIDO30CR TOP (14:32)
[2024-01-28] MEDS ORDERED: CEPH-585 PO (14:32)
[2024-01-28] MEDS: dexamethasone sod phosphate 10mg/ml inj IM STA (14:44)
[2024-01-28] MEDS: diphenhydrAMINE 50 mg/ml inj IM ONE (14:44)
[2024-01-28] MEDS: ketorolac trometh 30MG/ML vial 30 MG/ML VIAL IM ONE (14:45)
[2024-01-28 14:56] VITALS: RESP 16; TEMP 97.8
== END 2024-01-28 14:59 | disposition home or self-care (01) ==
LOC: ER 13:35
DX: L23.89 Allergic contact dermatitis due to other agents (principal); J45.909 Unspecified asthma, uncomplicated; F41.9 Anxiety disorder, unspecified; F32.A Depression, unspecified; Z88.0 Allergy status to penicillin; Z88.2 Allergy status to sulfonamides; Z79.899 Other long term (current) drug therapy; Z79.1 Long term (current) use of non-steroidal anti-inflammatories (NSAID); Z79.52 Long term (current) use of systemic steroids; Z90.710 Acquired absence of both cervix and uterus; Z98.890 Other specified postprocedural states
CPT/HCPCS: 96372; 99284; J1100; J1200; J1885

== ENCOUNTER 2025-04-18 10:14 | Emergency (ER) | payer MEDICARE, MEDICAID ==
[~2025-04-18] VITALS: Ht 149.9 cm; Wt 75.6 kg
[~2025-04-18 10:14] MED LIST changes: +ALB0.5UD NEB; -ALBU8.5H17 IH; +CYCL-394 PO; -DIPH25CA83 PO; -EPIN0.3P3 IM; -EST1T PO; -FAMO-128 PO; +FAMO20TA8 PO; -HYDR-4383 PO; -IBUP-1985 PO; +IBUP600T52 PO; -METH-798 PO; -OMEP20CA15 PO; -PRED10TA PO; -TEMA15CA PO
--- NOTE | 2025-04-18 10:46 | Physician Documentation ---
History of Present Illness ~ Chief Complaint: Flu Symptoms Stated Complaint: BAD COUGH Time Seen by MD: 11:45 Primary Medical Doctor: POOL Source: patient Mode of Arrival: POV Exam Limitations: no limitations HPI 45-year-old female in with complaints of cold cough congestion. Also had another family member here that has a positive for influenza A. Patient has history of asthma using her inhaler more frequently. Medication Reconciliation Allergies: Coded Allergies: Penicillins (Unverified Allergy, Mild, rash, 06/24/23) Sulfa (Sulfonamide Antibiotics) (Unverified Allergy, Mild, rash, 06/24/23) Scheduled Albuterol Sulfate (Proventil Hfa), 2 PUFFS INH Q6H Albuterol Sulfate Nebs* (Proventil Nebs*), 1 VIAL NEB Q6H, (Reported) Benzonatate* (Benzonatate*), 1 CAP PO Q8H Cyclobenzaprine HCl (Cyclobenzaprine HCl), 1 TAB PO BID, (Reported) Famotidine (Famotidine), 1 TAB PO Q12H, (Reported) Fluoxetine HCl (Fluoxetine HCl), 3 CAP PO DAILY Ibuprofen (Ibuprofen), 1 TAB PO Q6H Oseltamivir Phosphate (Tamiflu), 1 CAP PO Q12H Prednisone (Prednisone), 1 TAB PO DAILY Scheduled PRN Cyclobenzaprine* (Cyclobenzaprine*), 1 TAB PO BID PRN for muscle spasms, (Reported) Diclofenac Sodium (Voltaren Arthritis Pain), 2 GM TOP TID PRN for pain, (Rep orted) Lorazepam (Ativan), 1 TAB PO TID PRN for anxiety, (Reported) ONDANSETRON ODT 4mg tablet (Ondansetron Odt), 1 TABLET PO Q6H PRN for nausea/vomiting Sucralfate (Sucralfate), 1 TAB PO Q8H PRN for pain, (Reported) Tramadol HCl (Tramadol HCl), 1 TABLET PO TID PRN for pain, (Reported) Tramadol HCl (Tramadol HCl), 1 TAB PO TID PRN for pain, (Reported) Past Medical History Past Medical History: Asthma, Osteoporosis, Anxiety, Depression Past Surgical History: , hysterectomy, other Other Past Surgical History: oophrectomy Alcohol Use: Occasionally Drug Use: none Lives with: Family Lives In: Home Occupation: employed Review of Systems All Other Systems at this time: Reviewed and Negative Respiratory: Reports: see HPI Physical Exam Physical Exam General: Alert, no apparent distress. HEENT: PERRL, EOMI, no injection, moist mucous membranes. Neck: Full range of motion. Respiratory: Inspiratory wheezes posteriorly speaking in full sentences no respiratory distress cough Chest: No accessory muscle use. Cardiovascular: Regular rate and rhythm, no murmurs. Extremities: Normal range of motion, no deformity. Neurologic: Oriented x4. Psychiatric: Normal mood and affect. Skin: Normal color, warm and dry. No edema, no ecchymosis. Progress Results/Orders Results/Orders Orders - ANNEMARIE RUIZ NP Svn Treatment (04/18/25 11:57) Completed Orders - ANNEMARIE RUIZ NP Albuterol 2.5mg/3ml Nebule (Proventil 2. (04/18/25 12:00) Medications Received in ER Medications (Trade) Dose Ordered Sig/Fam Route PRN Reason Start Time Stop Time Status Last Admin Dose Admin (Proventil 2.5 MG/3ML nebule) 2.5 mg ONCE ONCE NEB 04/18/25 12:00 04/18/25 12:01 DC 04/18/25 12:27 2.5 MG Vital Signs 04/18/25 04/18/25 04/18/25 04/18/25 10:43 10:45 12:07 12:27 Temp 99.0 99.0 Pulse 119 116 95 87 Resp 20 18 20 B/P (MAP) 129/62 (84) 129/62 124/87 (99) Pulse Ox 96 95 96 95 O2 Delivery Room Air* O2 Flow Rate 0 0 0 FiO2 21 04/18/25 12:34 Pulse 101 Resp 2 Pulse Ox 99 O2 Delivery Room Air* O2 Flow Rate 0 FiO2 21 Heart Score: Heart Score Response (Comments) Value History Slightly Suspicious 0 EKG Normal 0 Age <45 0 Risk Factors No known risk factors 0 Troponin Normal limit 0 Total 0 Medical Decision Making Additional information obtaine: N/A Findings Patient's family member was tested positive for influenza A. Discussed symptomatic treatment hydration and follow up patient has a little bit of wheezing we will do a breathing treatment as well. Patient's vital signs are reassuring. Rest sounds clear. Patient will follow up with primary care Heart Score: 0 Differential Dx:Considerations: Include: upper resp. infection Departure Time of Disposition: 11:53 Disposition: 01 HOME / SELF CARE / HOMELESS Impression: Primary Impression: Influenza Condition: Stable Discharge Instructions: Influenza, Adult Additional Instructions: Medications as prescribed and follow up with primary care in 3-5 days. It is important to stay well hydrated monitor for any new or worsening symptoms Referrals: NO PRIMARY CARE PROVIDER (PCP) Prescriptions Prednisone (Prednisone) 10 Mg Tablet 1 TAB PO DAILY for 7 Days, #7 TAB Prov: ANNEMARIE RUIZ NP 04/18/25 ONDANSETRON ODT 4mg tablet (ONDANSETRON ODT) 4 Mg Tab.rapdis 1 TABLET PO Q6H PRN for nausea/vomiting, #16 TABLET Prov: ANNEAMRIE RUIZ NP 04/18/25 Benzonatate* (Benzonatate*) 100 Mg Capsule 1 CAP PO Q8H for cough for 10 Days, #30 CAP Prov: ANNEMARIE RUIZ NP 04/18/25 Oseltamivir Phosphate (TAMIFLU) 75 Mg Capsule 1 CAP PO Q12H for 5 Days, #10 CAP Prov: ANNEMARIE RUIZ [employer]NC MAINTENANCE MECHANIC 04/18/25 Education Educated: Patient Educated regarding: diagnosis, treatment, need for follow up Signature Scribe Signature: No scribe Attestation: The note accurately reflects work and decisions made by me.Annemarie Ruiz - KRISTINE 04/18/25 11:55 ANNEMARIE RUIZ NP Apr 18, 2025 10:46
[2025-04-18] MEDS ORDERED: BENZ-38 PO (11:54)
[2025-04-18] MEDS ORDERED: TAM75C PO (11:54)
[2025-04-18] MEDS ORDERED: ONDA-243 PO (11:54)
[2025-04-18] MEDS ORDERED: PRED10TA23 PO (11:57)
[2025-04-18 12:27] VITALS: PULSE 87; RESP 20; O2SAT 95
[2025-04-18] MEDS: albuterol 2.5 MG/3 ML nebule NEB ONE (12:27)
[2025-04-18 12:34] VITALS: PULSE 101; RESP 2; O2SAT 99
[2025-04-18 12:53] VITALS: BP 126/81; PULSE 98; RESP 18; TEMP 99; O2SAT 98
== END 2025-04-18 12:54 | disposition home or self-care (01) ==
LOC: ER 10:15
DX: J11.1 Influenza due to unidentified influenza virus with other respiratory manifestations (principal); F41.9 Anxiety disorder, unspecified; F32.A Depression, unspecified; Z88.0 Allergy status to penicillin; Z88.2 Allergy status to sulfonamides; Z90.710 Acquired absence of both cervix and uterus; Z79.899 Other long term (current) drug therapy; Z72.89 Other problems related to lifestyle; Z98.890 Other specified postprocedural states
CPT/HCPCS: 94640; 94760; 99283